=== PATIENT | male | born 1970 | race Caucasian/White ===

== ENCOUNTER 2019-08-06 08:10 | Emergency (ER) | payer OTHER ==
[~2019-08-06] VITALS: Ht 177.8 cm; Wt 70.3 kg
--- NOTE | 2019-08-06 08:40 | Emergency Room Report ---
History of Present Illness General Chief Complaint: Upper Respiratory Illness Source: Patient Present Illness HPI Disclaimer: Please note that this report is being documented using [employer] technology. This can lead to erroneous entry secondary to incorrect interpretation by the dictating instrument. HPI: 48-year-old male presents for evaluation of cough, chills and head congestion. Symptoms present approximate 1 week. He reports a moderately productive cough over the past few days as well as chills, subjective fevers and sweats. Decreased appetite but continues to eat and hydrate orally. Reports nasal congestion but denies sore throat. Denies chest pain, palpitations, abdominal pain, nausea or vomiting. This morning he had some loose stools. Complaining of pain in his eyes and congestion. Denies any changes in vision, swelling of the lids, discharge. Denies headache or dizziness. PMH: Mood disorder PSH: Denies Allergies: Denies Social Hx: Current smoker Allergies: Coded Allergies: No Known Allergies (Unverified , 08/06/19) Nursing Documentation-PMH Past Medical History: No Stated History Review of Systems All Other Systems: negative except mentioned in HPI Physical Exam Vital Signs Date Time Temp Pulse Resp B/P (MAP) Pulse Ox O2 Delivery O2 Flow Rate FiO2 08/06/19 08:18 98.1 90 17 108/70 (83) 99 Room Air General: Awake and alert, no acute distress HEENT: NC/AT. EOMI. PERRLA. Visual steiner are full. No maxillary frontal or ethmoid sinus tenderness. Neck: Supple, trachea midline, no lymphadenopathy Cardiovascular: RRR. S1 and S2 normal. No murmur appreciated Resp: Normal work of breathing. No cough, wheezing or crackles appreciated Abdomen: Abdomen is soft, nondistended. Nontender Skin: Intact. No abrasions, laceration or rash over the exposed skin MSK: Normal tone and bulk. Moving all extremities. No obvious deformity. Neuro: Awake and alert. Mentating appropriately. Medical Decision Making Diagnostic Impression: Primary Impression: Cough Additional Impressions: Viral respiratory illness Viral syndrome ER Course 48-year-old male presents for evaluation of 1 week upper respiratory symptoms, cough and new onset diarrhea. Differential includes but not limited to viral syndrome, bronchitis, pneumonia, URI, gastritis, gastroenteritis. He is well- appearing with stable vital signs and no respiratory distress. Afebrile. Chest x-ray was obtained given his long duration of symptoms. There is no infiltrate or other abnormalities appreciated. His symptoms are most consistent with a viral syndrome. He is otherwise well-appearing do not believe he requires emergent labs or further work-up in the emergency department at this time. He can follow-up on an outpatient basis. Will prescribe symptomatic medications. He can return with new or worsening symptoms. He understands and agrees with this treatment plan. Chest X-Ray Diagnostic Results Chest X-Ray Diagnostic Results : Chest X-Ray Ordered: Yes # of Views/Limited/Complete: 1 View Indication: Shortness of Breath EP Interpretation: Yes Interpretation: no consolidation, no effusion, no pneumothorax, no acute cardiopulmonary disease Impression: No acute disease Electronically Signed by: Electronically signed by Dr. Thang Karimi Last Vital Signs Date Time Temp Pulse Resp B/P (MAP) Pulse Ox O2 Delivery O2 Flow Rate FiO2 08/06/19 08:18 98.1 90 17 108/70 (83) 99 Room Air Disposition: HOME, SELF-CARE Condition: Stable Scripts Codeine/Promethazine Hcl* (PROMETHAZINE-CODEINE SYRUP*) 118 Ml Syrup 5 ML ORAL Q6H PRN for For Cough for 5 Days, #118 ML 0 Refills Prov: Thang Karimi MD 08/06/19 Thang Karimi MD Aug 06, 2019 08:39
[2019-08-06 08:48] VITALS: BP 108/70
--- NOTE | 2019-08-06 08:48 | NUR ---
ED Nurse Note:pt. came with c/o cough and weakness for 1 week
[2019-08-06] MEDS ORDERED: PROMETHAZINE-C118 M1 ORAL (09:01)
[2019-08-06 09:10] VITALS: BP 108/70
--- NOTE | 2019-08-06 09:10 | NUR ---
ER DISCHARGE NOTE: Patient is cleared to be discharged per ERMD, pt is aox4, on room air, with stable vital signs. pt was given dc and prescription instructions, pt was able to verbalize understanding, pt is able to ambulate with steady gait. pt took all belongings.
--- NOTE | 2019-08-06 11:10 | Diagnostic Imaging Report ---
Indication: Dyspnea Comparison: None A single view chest radiograph was obtained. Findings: Cardiomediastinal appearance is within normal limits for age. The lungs are clear. Pulmonary vascularity is appropriate. The diaphragmatic contour is smooth and costophrenic angles are sharp. No pleural effusions are identified. The bones are unremarkable. Impression: No acute findings
== END 2019-08-06 09:10 | disposition home or self-care (01) ==
LOC: EMR 08:36
DX: J06.9 Acute upper respiratory infection, unspecified (principal); B34.9 Viral infection, unspecified; R05 Cough; F17.200 Nicotine dependence, unspecified, uncomplicated
CPT/HCPCS: 71045; Z7502; 99283